=== PATIENT | male | born 1965 | race Native Hawaiian/Other Pacific Islander ===

== ENCOUNTER 2018-10-11 09:57 | Outpatient (CLI) | payer BC | END 2018-10-11 22:26 | disposition home or self-care (01) | LOC: RAD 09:57 | DX: M25.571 Pain in right ankle and joints of right foot (principal); M79.671 Pain in right foot ==

== ENCOUNTER 2019-12-20 10:32 | Outpatient (CLI) | payer BC | END 2019-12-20 19:06 | disposition home or self-care (01) | LOC: US 10:32 | DX: R10.30 Lower abdominal pain, unspecified (principal); R10.2 Pelvic and perineal pain; R19.00 Intra-abdominal and pelvic swelling, mass and lump, unspecified site ==

== ENCOUNTER 2019-12-29 11:29 | Outpatient (CLI) | payer BC | END 2019-12-29 19:03 | disposition home or self-care (01) | LOC: US 11:29 | DX: N50.819 Testicular pain, unspecified (principal) ==

== ENCOUNTER 2020-04-03 10:02 | Outpatient (CLI) | payer BC, OTHER | END 2020-04-03 19:36 | disposition home or self-care (01) | LOC: LAB 10:02 | PROVIDERS: ATTEND Nurse Practitioner Family | DX: R51.9 Headache, unspecified (principal); J34.89 Other specified disorders of nose and nasal sinuses; Z11.59 Encounter for screening for other viral diseases | CPT/HCPCS: 87635; G2023; U0003 ==

== ENCOUNTER 2021-04-22 09:39 | Outpatient (CLI) | payer BC | END 2021-04-22 19:27 | disposition home or self-care (01) | LOC: US 09:39 | PROVIDERS: ATTEND Nurse Practitioner Family | DX: N50.819 Testicular pain, unspecified (principal) ==

== ENCOUNTER 2022-06-04 08:35 | Outpatient (CLI) | payer BC | END 2022-06-04 19:32 | disposition home or self-care (01) | LOC: US 08:35 | PROVIDERS: ATTEND Nurse Practitioner Family | DX: R10.10 Upper abdominal pain, unspecified (principal) ==

== ENCOUNTER 2022-07-06 09:02 | Outpatient (CLI) | payer BC | END 2022-07-06 21:09 | disposition home or self-care (01) | LOC: CT 09:02 | PROVIDERS: ATTEND Nurse Practitioner Family | DX: R10.9 Unspecified abdominal pain (principal); R10.2 Pelvic and perineal pain; R63.5 Abnormal weight gain | CPT/HCPCS: 36415; 82565; 84520; Q9963 ==